=== PATIENT | female | born 1965 | race Caucasian/White ===

== ENCOUNTER 2018-06-02 18:02 | Emergency (ER) | payer SELFPAY ==
[2018-06-02 18:07] VITALS: BP 144/75
--- NOTE | 2018-06-02 18:40 | ER Document Report ---
ED General - General Chief Complaint: Facial Droop Stated Complaint: HEADACHE Time Seen by Provider: 06/02/18 18:40 Notes: Patient is a 52-year-old female that presents to the emergency department for chief complaint of right-sided facial droop. Patient states she woke up this past Monday morning, and noticed that the right side of her face was drooping , she has had photophobia, and pain behind her right ear as well. She did have upper respiratory tract infection symptoms prior to this, that has since resolved. She denies currently any fevers, chills, night sweats, chest pain, shortness of breath, nausea, vomiting, difficulty breathing or swallowing. Never had symptoms like this in the past. She denies any numbness, weakness or tingling in any of her extremities, denies any changes in her speech. Past Medical History: Denies chronic medical conditions Past Surgical History: Ankle surgery, Social History: Admits to smoking cigarettes daily, and rare alcohol use, denies illicit drug use. Family History: Reviewed and noncontributory for presenting illness Allergies: Reviewed, see documented allergy list. REVIEW OF SYSTEMS: Other than noted above, the 12 point review of systems was reviewed with the patient and were negative, all pertinent findings are included in the HPI. PHYSICAL EXAMINATION: Vital signs reviewed, nursing noted reviewed. GENERAL: Well-appearing, well-nourished and in no acute distress. HEAD: Atraumatic, normocephalic. EYES: The right eye is tearful, patient is unable to close it completely, no conjunctival injection bilaterally, EOMI, PERRLA, fluorescein dye exam negative for corneal abrasion. ENT: nares patent, oropharynx clear without exudates. Moist mucous membranes. TMs appear normal bilaterally NECK: Normal range of motion, supple without lymphadenopathy LUNGS: Breath sounds clear to auscultation bilaterally and equal. No wheezes rales or rhonchi. HEART: Regular rate and rhythm without murmurs ABDOMEN: Soft, nontender, normoactive bowel sounds. No rebound, guarding, or rigidity. No masses appreciated. EXTREMITIES: Nontender, good range of motion, no pitting or edema. NEUROLOGICAL: Patient has a facial nerve palsy on the right, unable to close her right eye completely, she has inability to raise her eyebrow, or smile completely on the right. No other focal neurological deficits noted. Moves all extremities spontaneously Motor and sensory grossly intact on exam. PSYCH: Normal mood, normal affect. SKIN: Warm, Dry, normal turgor, no rashes or lesions noted on exposed skin TRAVEL OUTSIDE OF THE [place] IN LAST 30 DAYS: No - Related Data Allergies/Adverse Reactions: No Known Allergies Allergy (Verified 06/02/18 18:03) Past Medical History - Social History Smoking Status: Current Every Day Smoker Frequency of alcohol use: None Drug Abuse: Marijuana Family History: Reviewed & Not Pertinent Patient has suicidal ideation: No Patient has homicidal ideation: No Pulmonary Medical History: Reports: Hx Asthma Renal/ Medical History: Denies: Hx Peritoneal Dialysis Skin Medical History: Reports Hx Cellulitis, Denies Hx Eczema, Denies Hx Psoriasis Traumatic Medical History: Reports: Hx Fractures - OPEN R. TIB-FIB Past Surgical History: Reports: Hx Section, Hx Orthopedic Surgery, Hx Tonsillectomy - Immunizations Hx Diphtheria, Pertussis, Tetanus Vaccination: Yes Physical Exam - Vital signs Vitals: Temp Pulse Resp BP Pulse Ox 98.3 F 79 18 144/75 H 95 06/02/18 18:06 06/02/18 18:06 06/02/18 18:06 06/02/18 18:06 06/02/18 18:06 Course - Re-evaluation Re-evalutation: Patient seen and examined vital signs reviewed. Patient was evaluated and treated as appropriate for the patient's presenting symptoms and complaint, with consideration of any critical or life threatening conditions that may be associated with their obtained history and exam as noted above. Patient was treated with prednisone The patient was re-evaluated and was stable, patient given eye patch to use at night, to minimize risk of corneal abrasion, advised to use artificial tears liberally as well. 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 Patient was agreeable to plan of care. *Note is created using voice recognition software and may contain spelling, syntax or grammatical errors. - Vital Signs Vital signs: Temp Pulse Resp BP Pulse Ox 98.3 F 79 18 144/75 H 95 06/02/18 18:06 06/02/18 18:06 06/02/18 18:06 06/02/18 18:06 06/02/18 18:06 Discharge - Discharge Clinical Impression: Birch's palsy Condition: Stable Disposition: HOME, SELF-CARE Instructions: Birch's Palsy ([facility]), Steroid Medication Additional Instructions: Take medications as directed, you need to use artificial tears as much as possible, to avoid scratching your eye. Please follow-up with your primary care physician. At bedtime, wear an eye patch to avoid scratching of your eye. Prescriptions: Prednisone [Deltasone 10 mg Tablet] 10 mg PO ASDIR PRN #40 tablet PRN Reason: Referrals: JOANA SANCHEZ MD [[facility]] - Follow up in 3-5 days (or your primary care. )
[2018-06-02] MEDS ORDERED: PREDNISONE 20 MG TABLET PO ONE (19:32)
== END 2018-06-02 19:49 | disposition home or self-care (01) ==
LOC: ER 18:02
DX: G51.0 Bell's palsy (principal); H53.149 Visual discomfort, unspecified; H92.01 Otalgia, right ear; F17.210 Nicotine dependence, cigarettes, uncomplicated
CPT/HCPCS: 99283; J7512